=== PATIENT | male | born 1995 | race Caucasian/White ===

== ENCOUNTER 2018-09-19 22:34 | Emergency (ER) | payer BC ==
[2018-09-19] MEDS: LORAZEPAM 2 MG INJ IV (23:16)
[2018-09-19] MEDS: SOD CHLORIDE 0.9% 1,000 ML IV (23:18)
[2018-09-19 23:27] LABS: ADD MAN DIFF? NO
[2018-09-19 23:29] LABS: BASOPHILS % 0.2 % (0.0-2.0); EOSINOPHILS # 0.4 10^3/ul (0.0-0.5); HEMATOCRIT 39.8 % (42.0-52.0); HEMOGLOBIN 14.2 g/dl (14.0-18.0); LYMPHOCYTES % 22.5 % (15.0-51.0); MEAN CORPUSCULAR HGB CONC 35.7 g/dl (32.0-37.0); MEAN CORPUSCULAR VOLUME 86.9 fl (82.0-101.0); MEAN PLATELET VOLUME 9.6 fl (7.4-10.4); MONOCYTE # 1.1 10^3/ul (0.3-0.9); MONOCYTES % 12.5 % (0.0-11.0); NEUTROPHIL # 5.3 10^3/ul (1.6-7.5); NEUTROPHILS % 60.6 % (39.0-77.0); PLATELET COUNT 223 10^3/UL (140-415); RED BLOOD COUNT 4.58 10^6/ul (4.70-6.10); RED CELL DISTRIBUTION WIDTH 12.6 % (11.5-14.5)
[2018-09-19 23:29] LABS: WHITE BLOOD COUNT 8.8 10^3/ul (4.8-10.8)
[2018-09-19 23:54] LABS: ANION GAP 14 (5-13); BLOOD UREA NITROGEN 13 mg/dl (7-20); CALCIUM 9.7 mg/dl (8.4-10.2); CARBON DIOXIDE 28 mmol/L (21-31); CHLORIDE 92 mmol/L (97-110); CREATININE 0.78 mg/dl (0.61-1.24); Estimated GFR > 60 mL/min (>60); GLUCOSE 117 mg/dl (70-220); MAGNESIUM 1.5 mg/dl (1.7-2.5); POTASSIUM 3.8 mmol/L (3.5-5.1); SODIUM 134 mmol/L (135-144)
[2018-09-20 00:19] LABS: ETHANOL < 10.0 mg/dl (0-0)
[2018-09-20] MEDS: SOD CHLORIDE 0.9% 1,000 ML IV (00:44)
[2018-09-20] MEDS: MAGNESIUM OXIDE 400 MG TAB PO (01:30)
== END 2018-09-20 01:38 | disposition home or self-care (01) ==
LOC: E/R 09-20 01:38
DX: F15.23 Other stimulant dependence with withdrawal (principal); F11.23 Opioid dependence with withdrawal; E86.0 Dehydration; E83.42 Hypomagnesemia
CPT/HCPCS: 36415; 80048; 80307; 83735; 85025; 93005; 96374; 99284-25